=== PATIENT | male | born 1960 | race Caucasian/White ===

== ENCOUNTER → 2019-02-20 | Outpatient (CLI) | payer OTHER ==
[2019-02-20 11:39] LABS: ANION GAP 9 (5-13); BLOOD UREA NITROGEN 15 mg/dl (7-20); CALCIUM 9.1 mg/dl (8.4-10.2); CARBON DIOXIDE 26 mmol/L (21-31); CHLORIDE 106 mmol/L (97-110); CREATININE 0.67 mg/dl (0.61-1.24); Estimated GFR > 60 mL/min (>60); GLUCOSE 104 mg/dl (70-220); POTASSIUM 4.4 mmol/L (3.5-5.1); SODIUM 141 mmol/L (135-144)
== END | disposition home or self-care (01) ==
LOC: LAB 10:58
DX: R07.9 Chest pain, unspecified (principal)
CPT/HCPCS: 80048

== ENCOUNTER → 2019-03-21 | Outpatient (CLI) | payer OTHER ==
[~2019-03-21] MED LIST: IOHEXOL 100 ML; NITROGLYCERIN AEROSOL (4.9 GM); SOD CHLORIDE 0.9% 100 ML
== END | disposition home or self-care (01) ==
LOC: C/S 09:53
DX: R07.9 Chest pain, unspecified (principal)
CPT/HCPCS: 75571; 75571-59; 75574